=== PATIENT | female | born 1970 | race Caucasian/White ===

== ENCOUNTER 2017-02-24 21:51 | Emergency (ER) | payer BC ==
[2017-02-24 21:57] VITALS: BP 127/74; PULSE 85; TEMP 98.5; BMI 31.8
--- NOTE | 2017-02-24 22:25 | PDOC ---
History of Present Illness - General History Source: Patient Exam Limitations: No Limitations - History of Present Illness Initial Comments: 02/24/17 22:34 The patient is a 46 year old female with significant past medical history of hypertension and hyperlipidemia who presents to the ED for dizziness that began earlier today. Patient describes her dizziness a generalized weakness. She also has complaints of a ringing in both ears, but no ear pain or ear discharge. Patient reports a few episodes of diarrhea today, but no abdominal pain, nausea , or vomiting. States she still has an appetite. Denies sick contacts or recent travels. The patient denies fever, chills, cough, SOB, chest pain, and palpitations. The patient denies dysuria, hematuria, urgency, and frequency. Allergies: NKDA Social History: Current smoker (ppd). No alcohol or drug use reported. Past Surgical History: None reported PCP: Dr. Deo Bradford <Evelyne Marquez - Last Filed: 02/25/17 00:16> - General History Source: Patient, Family <Nas Martinez - Last Filed: 02/25/17 00:45> - General Chief Complaint: Weakness Stated Complaint: WEAKNESS Time Seen by Provider: 02/24/17 22:19 Past History <Evelyne Marquez - Last Filed: 02/25/17 00:16> - Past Medical History HTN: Yes Hypercholesterolemia: Yes - Psycho/Social/Smoking Cessation Hx Suicidal Ideation: No Smoking History: Current every day smoker Number of Cigarettes Smoked Daily: 20 Information on smoking cessation initiated: No <Nas Martinez - Last Filed: 02/25/17 00:45> - Past Medical History Allergies/Adverse Reactions: Allergies Allergy/AdvReac Type Severity Reaction Status Date / Time No Known Allergies Allergy Verified 02/24/17 21:57 Home Medications: Ambulatory Orders Albuterol Sulfate [Proair Respiclick] 90 mcg IH TID 02/24/17 Atorvastatin Ca [Lipitor] 20 mg PO HS 02/24/17 Clonazepam 0.5 mg PO BID 02/24/17 Cyanocobalamin (Vitamin B-12) [Vitamin B-12] 1,000 mcg PO DAILY 02/24/17 Cyclobenzaprine HCl [Flexeril 10 mg] 10 mg PO DAILY 02/24/17 Dexlansoprazole [Dexilant] 60 mg PO DAILY 02/24/17 Lisinopril/Hydrochlorothiazide [Lisinopril-Hctz 10-12.5 mg Tab] 1 each PO DAILY 02/24/17 Meclizine HCl 12.5 mg PO TID 02/24/17 Meloxicam [Mobic] 15 mg PO DAILY 02/24/17 Pantoprazole Sodium 40 mg PO DAILY 02/24/17 Pyridoxine HCl (B-6) [Vitamin B6] 50 mg PO DAILY 02/24/17 Sertraline HCl [Zoloft] 100 mg PO DAILY 02/24/17 Review of Systems - Review of Systems Able to Perform ROS?: Yes Comments:: 02/24/17 22:34 CONSTITUTIONAL: +generalized weakness Absent: fever, no chills, no fatigue EYES: Absent: visual changes ENT: +bilateral ear ringing Absent: ear pain, no sore throat CARDIOVASCULAR: Absent: chest pain, no palpitations RESPIRATORY: Absent: cough, no SOB GI: +diarrhea Absent: abdominal pain, no nausea, no vomiting, no constipation GENITOURINARY: Absent: dysuria, no frequency, no hematuria MUSCULOSKELETAL: Absent: back pain, no arthralgia, no myalgia SKIN: Absent: rash NEURO: +dizziness Absent: headache <Evelyne Marquez - Last Filed: 02/25/17 00:16> *Physical Exam - Vital Signs Last Vital Signs Temp Pulse Resp BP Pulse Ox 98.5 F 85 18 127/74 99 02/24/17 21:54 02/24/17 21:54 02/24/17 21:54 02/24/17 21:54 02/24/17 21:54 - Physical Exam Comments: 02/24/17 22:34 GENERAL: Well-appearing, well-nourished. No apparent distress. HEENT: Normocephalic, atraumatic. PERRL, EOM intact. CARDIOVASCULAR: Normal S1, S2. Regular rate and rhythm. PULMONARY: Clear to auscultation bilaterally. ABDOMEN: Soft, non-distended, non-tender. EXTREMITIES: Normal ROM in all four extremities. No gross deformities. SKIN: Warm, dry. No rash NEUROLOGICAL: No focal neurological deficits. <Evelyne Marquez - Last Filed: 02/25/17 00:16> - Vital Signs Last Vital Signs Temp Pulse Resp BP Pulse Ox 98.5 F 85 18 127/74 99 02/24/17 21:54 02/24/17 21:54 02/24/17 21:54 02/24/17 21:54 02/24/17 21:54 <Nas Martinez - Last Filed: 02/25/17 00:45> ED Treatment Course - LABORATORY CBC & Chemistry Diagram: 02/24/17 22:50 02/24/17 22:50 - RADIOLOGY Radiograph Interpretation: 02/25/17 00:16 EXAM: CT brain without contrast Reviewed by Imaging concrete block mason: FINDINGS: The ventricular system is midline and nondilated. The sulcal pattern is normal for the patient's age. There is no bleed, mass, extra-axial fluid collection or mass effect. No skull fracture or skull lesion is identified. The visualized paranasal sinuses and mastoid air cells are clear. IMPRESSION: Normal exam. <Evelyne Marquez - Last Filed: 02/25/17 00:16> - LABORATORY CBC & Chemistry Diagram: 02/24/17 22:50 02/24/17 22:50 <Nas Martinez - Last Filed: 02/25/17 00:45> Medical Decision Making - Medical Decision Making 02/25/17 00:23 Dr. Martinez: The scribe's documentation has been prepared under my direction and personally reviewed by me in its entirery. I confirm that the note above accurately reflects all work, treatment, procedures, and medical decision making performed by me. Pt feels better after IVF hydration and 25mg of Mecilzine. Pt will be discharged. Advised to take two tabs of her 12.5mg tabs she already has. Pt to follow up with her pcp. <Nas Martinez - Last Filed: 02/25/17 00:45> *DC/Admit/Observation/Transfer - Attestations Scribe Attestion: 02/24/17 22:34 Documentation prepared by Evelyne Marquez, acting as medical center director for Nas Martinez MD/DO. <Evelyne Marquez - Last Filed: 02/25/17 00:16> - Discharge Dispostion Admit: No <Nas Martinez - Last Filed: 02/25/17 00:45> Diagnosis at time of Disposition: Vertigo, Dizziness - Discharge Dispostion Disposition: HOME Condition at time of disposition: Stable - Referrals Referrals: Deo Bradford MD [Primary Care Provider] - Kalia Marcelo MD [Staff Physician] - Matthew Gr MD [Staff Physician] - Royal Turner MD [Staff Physician] - - Patient Instructions Printed Discharge Instructions: DI for Vertigo Additional Instructions: Please take 2 tabs of 12.5mg Meclizine tabs every 8 hours. Follow up with your doctor. Return if any problems
[2017-02-24] MEDS ORDERED: MECLIZINE HCL 25 MG TABLET (FP) PO STA (22:26)
[2017-02-24] MEDS ORDERED: SODIUM CHLORIDE 1,000 ML IV STA (22:26)
[2017-02-24] MEDS ORDERED: MECLIZINE HCL 25 MG TABLET (FP) ONE (22:32)
[2017-02-24 23:08] LABS: BASOPHIL 0.6 % (0-2.0); EOSINOPHIL 2.6 % (0-4.5); MCH 27.9 pg (25.7-33.7); MCHC 33.7 g/dl (32.0-36.0); MEAN CELL VOLUME 82.7 fl (80-96); MEAN PLT VOLUME 9.3 fl (7.5-11.1); NEUTROPHILS 64.1 % (42.8-82.8); PLATELET COUNT 170 K/MM3 (134-434); RDW 13.7 % (11.6-15.6); WHITE BLOOD COUNT 10.9 K/mm3 (4.0-10.0)
[2017-02-24 23:50] LABS: ALBUMIN 3.6 g/dl (3.4-5.0); ANION GAP 11 (8-16); BILIRUBIN,TOTAL 0.2 mg/dL (0.2-1.0); CALCIUM 9.6 mg/dL (8.5-10.1); CO2 29 mmol/L (21-32); GLUCOSE,RANDOM 114 mg/dL (74-106); SGOT/AST 23 U/L (15-37); SGPT/ALT 36 U/L (12-78); TOT PROT 6.8 g/dl (6.4-8.2)
[2017-02-24 23:53] LABS: ALK PHOS 106 U/L (45-117); TROPONIN I < 0.02 ng/ml (0.00-0.05)
== END 2017-02-25 00:40 | disposition home or self-care (01) ==
LOC: JER 21:51
PROC: 3E0337Z Introduction of Electrolytic and Water Balance Substance into Peripheral Vein, Percutaneous Approach (ICD-10-PCS; principal; 2017-02-24)
DX: R42 Dizziness and giddiness (principal); I10 Essential (primary) hypertension; E78.5 Hyperlipidemia, unspecified; F17.210 Nicotine dependence, cigarettes, uncomplicated
CPT/HCPCS: 36415; 70450-TC; 80053; 82550; 82553; 84484; 84703; 85025; 99284-25

== ENCOUNTER 2018-03-18 21:17 | Emergency (ER) | payer OTHER ==
[2018-03-18 21:39] VITALS: BP 127/79; PULSE 77; TEMP 98.2; BMI 33.3
[2018-03-18] MEDS ORDERED: SODIUM CHLORIDE 1,000 ML IV STA (23:48)
--- NOTE | 2018-03-18 23:48 | PDOC ---
History of Present Illness - General Chief Complaint: Pain Stated Complaint: FATIGUE Time Seen by Provider: 03/18/18 23:05 History Source: Patient Exam Limitations: No Limitations - History of Present Illness Initial Comments: 03/19/18 00:34 Best Contact: PCP: Constanza name Pmhx: Hypertension, hyperlipidemia, NIDDM Pshx:0 Allergies:0 FH:0 Social Hx: Cigarettes/ 0 Alcohol/ 0 Drugs/0 LMP:03/17/2018 47-year-old female presents to the emergency department complaining of bilateral ear fullness with dizziness/room spinning but denies lightheadedness, headache, visual disturbance/pain, facial pain, sore throat, neck stiffness/pain , back pain, chest pain, shortness of breath, abdominal pains, flank pains, urinary symptoms, extremity numbness or tingling sensation. Patient states her dizziness is pretty chronic and is under the care of her PMD. Patient does admit chronic blowing her nose and has notice ear stuffiness shortly after. Past History - Past Medical History Allergies/Adverse Reactions: Allergies Allergy/AdvReac Type Severity Reaction Status Date / Time No Known Allergies Allergy Verified 02/24/17 21:57 Home Medications: Ambulatory Orders Albuterol Sulfate [Proair Respiclick] 90 mcg IH TID 02/24/17 Atorvastatin Ca [Lipitor] 20 mg PO HS 02/24/17 Clonazepam 0.5 mg PO BID 02/24/17 Cyanocobalamin (Vitamin B-12) [Vitamin B-12] 1,000 mcg PO DAILY 02/24/17 Cyclobenzaprine HCl [Flexeril 10 mg] 10 mg PO DAILY 02/24/17 Dexlansoprazole [Dexilant] 60 mg PO DAILY 02/24/17 Lisinopril/Hydrochlorothiazide [Lisinopril-Hctz 10-12.5 mg Tab] 1 each PO DAILY 02/24/17 Meclizine HCl 12.5 mg PO TID 02/24/17 Meloxicam [Mobic] 15 mg PO DAILY 02/24/17 Pantoprazole Sodium 40 mg PO DAILY 02/24/17 Pyridoxine HCl (B-6) [Vitamin B6] 50 mg PO DAILY 02/24/17 Sertraline HCl [Zoloft] 100 mg PO DAILY 02/24/17 COPD: No DVT: No Diabetes: Yes (NIDDM) HTN: Yes Hypercholesterolemia: Yes - Suicide/Smoking/Psychosocial Hx Smoking History: Current every day smoker Number of Cigarettes Smoked Daily: 20 Information on smoking cessation initiated: Yes Hx Alcohol Use: No Drug/Substance Use Hx: No Substance Use Type: None Review of Systems - Review of Systems Able to Perform ROS?: Yes Comments:: 03/19/18 00:38 CONSTITUTIONAL: Absent: fever, chills, diaphoresis, generalized weakness, malaise, loss of appetite HEENT: +B/L ear fullness Absent: rhinorrhea, nasal congestion, throat pain, throat swelling, difficulty swallowing, mouth swelling, ear pain, eye pain, visual Changes CARDIOVASCULAR: Absent: chest pain, loss of consciousness, palpitations, irregular heart rate, peripheral edema RESPIRATORY: Absent: cough, shortness of breath, dyspnea with exertion, orthopnea, wheezing, stridor, hemoptysis GASTROINTESTINAL: Absent: abdominal pain, abdominal distension, nausea, vomiting, diarrhea, constipation, melena, hematochezia GENITOURINARY: Absent: dysuria, frequency, urgency, hesitancy, hematuria, flank pain, genital pain MUSCULOSKELETAL: Absent: myalgia, arthralgia, joint swelling SKIN: Absent: rash, itching, pallor HEMATOLOGIC/IMMUNOLOGIC: Absent: easy bleeding, easy bruising, lymphadenopathy, frequent infections ENDOCRINE: Absent: unexplained weight gain, unexplained weight loss, heat intolerance, cold intolerance NEUROLOGIC: +dizziness Absent: headache, focal weakness or paresthesias, unsteady gait, seizure, mental status changes, bladder or bowel incontinence PSYCHIATRIC: Absent: anxiety, depression, suicidal or homicidal ideation, hallucinations. Is the patient limited Czech proficient: No *Physical Exam - Vital Signs Last Vital Signs Temp Pulse Resp BP Pulse Ox 98.2 F 77 20 127/79 96 03/18/18 21:35 03/18/18 21:35 03/18/18 21:35 03/18/18 21:35 03/18/18 21:35 - Physical Exam Comments: 03/19/18 00:39 GENERAL: Well developed, well nourished. Awake and alert. No acute distress. HEENT: Normocephalic, atraumatic. PERRLA, EOMI. No conjunctival pallor. Sclera are non- icteric. Moist mucous membranes. Oropharynx is clear. NECK: Supple. Full ROM. No JVD. Carotid pulses 2+ and symmetric, without bruits. No thyromegaly. No lymphadenopathy. CARDIOVASCULAR: Regular rate and rhythm. No murmurs, rubs, or gallops. Distal pulses are 2+ and symmetric. PULMONARY: No evidence of respiratory distress. Lungs clear to auscultation bilaterally. No wheezing, rales or rhonchi. ABDOMINAL: Soft. Non-tender. Non-distended. No rebound or guarding. No organomegaly. Normoactive bowel sounds. MUSCULOSKELETAL Normal range of motion at all joints. No bony deformities or tenderness. No CVA tenderness. EXTREMITIES: No cyanosis. No clubbing. No edema. No calf tenderness. SKIN: Warm and dry. Normal capillary refill. No rashes. No jaundice. NEUROLOGICAL: Alert, awake, appropriate. Cranial nerves 2-12 intact. No deficits to light touch and temperature in face, upper extremities and lower extremities. No motor deficits in the in face, upper extremities and lower extremities. Normoreflexic in the upper and lower extremities. Normal speech. Toes are down- going bilaterally. Gait is normal without ataxia. PSYCHIATRIC: Cooperative. Good eye contact. Appropriate mood and affect. ED Treatment Course - LABORATORY CBC & Chemistry Diagram: 03/19/18 00:00 03/19/18 00:00 - RADIOLOGY Radiograph Interpretation: 03/19/18 00:39 CT head w/o conrast: neg ?acute vs chronic sinusitis *DC/Admit/Observation/Transfer Diagnosis at time of Disposition: Dizziness - Discharge Dispostion Disposition: HOME Condition at time of disposition: Stable Decision to Admit order: No - Referrals Referrals: Deo Bradford MD [Primary Care Provider] - Clark Chacon MD [Staff Physician] - - Patient Instructions Printed Discharge Instructions: DI for Dizziness-Nonvertigo Additional Instructions: Follow-up with your neurologist Return back to the emergency department for severe/persistent or worsening symptoms - Post Discharge Activity
[2018-03-19 00:50] LABS: BASO % 0.8 % (0-2.0); EOS % 2.7 % (0-4.5); HEMOGLOBIN 13.3 GM/dL (10.7-15.3); LYMPH % 25.7 % (8-40); MCH 28.3 pg (25.7-33.7); MCHC 34.1 g/dl (32.0-36.0); MEAN PLT VOLUME 9.5 fl (7.5-11.1); MONO % 7.3 % (3.8-10.2); NEUT % 63.5 % (42.8-82.8); PLATELET COUNT 183 K/MM3 (134-434); RDW 14.2 % (11.6-15.6); WHITE BLOOD COUNT 11.1 K/mm3 (4.0-10.0)
[2018-03-19 01:07] LABS: ALBUMIN 3.7 g/dl (3.4-5.0); ALK PHOS 120 U/L (45-117); ANION GAP 7 (8-16); BILIRUBIN,TOTAL 0.3 mg/dL (0.2-1.0); BLOOD UREA NITROGEN 13 mg/dL (7-18); CALCIUM 8.9 mg/dL (8.5-10.1); CHLORIDE 108 mmol/L (98-107); CO2 29 mmol/L (21-32); CREATININE 0.8 mg/dL (0.55-1.02); GLUCOSE,RANDOM 162 mg/dL (74-106); POTASSIUM 3.6 mmol/L (3.5-5.1); SGOT/AST 32 U/L (15-37); SGPT/ALT 62 U/L (12-78); SODIUM 144 mmol/L (136-145); TOT PROT 6.7 g/dl (6.4-8.2)
== END 2018-03-19 01:32 | disposition home or self-care (01) ==
LOC: JER 21:17 → JERFT 21:17 → JER 03-19 01:32
PROC: 3E0337Z Introduction of Electrolytic and Water Balance Substance into Peripheral Vein, Percutaneous Approach (ICD-10-PCS; principal; 2018-03-18)
DX: R42 Dizziness and giddiness (principal); I10 Essential (primary) hypertension; E78.00 Pure hypercholesterolemia, unspecified; E11.9 Type 2 diabetes mellitus without complications; Z79.84 Long term (current) use of oral hypoglycemic drugs
CPT/HCPCS: 36415; 70450-TC; 80053; 85025; 96360; 99282-25; J7030

== ENCOUNTER 2018-12-15 19:56 | Emergency (ER) | payer OTHER ==
[2018-12-15 20:00] VITALS: BP 132/84; PULSE 96; TEMP 98; BMI 30.6
--- NOTE | 2018-12-15 20:21 | PDOC ---
History of Present Illness - General History Source: Patient Exam Limitations: No Limitations - History of Present Illness Initial Comments: 48 yo F w a pmh of HTN, HLD, and Pre-diabetes walked into to the ER with the chief complaint of RLQ abdominal pain. The patient states she was told by her PCP - Dr. Bradford that she had blood in her urine yesterday. She endorses Rlq abdominal pain which radiates to the groin. She states the pain starts in her flank and is 8/10 in severity. She denies fevers, chills, infections, dysuria, frequency, urgency, chest pain, SOB or difficulty breathing. Allergies: NKDA, NKA Social History: Current smoker (ppd) ~ 30 years. No alcohol or drug use reported. Past Surgical History: None reported PCP: Dr. Deo Bradford <Leandro Reyes - Last Filed: 12/15/18 23:53> <Laure Shelley - Last Filed: 12/16/18 00:20> - General Chief Complaint: Pain Stated Complaint: RLQ PAIN Time Seen by Provider: 12/15/18 20:19 Past History - Past Medical History COPD: No DVT: No Diabetes: Yes (NIDDM) HTN: Yes Hypercholesterolemia: Yes - Reproductive History Is Patient Now?: No Therapeutic (s) & number: No - Suicide/Smoking/Psychosocial Hx Smoking History: Never smoked Number of Cigarettes Smoked Daily: 20 Hx Alcohol Use: No Drug/Substance Use Hx: No Substance Use Type: None <Leandro Reyes - Last Filed: 12/15/18 23:53> <Laure Shelley - Last Filed: 12/16/18 00:20> - Past Medical History Allergies/Adverse Reactions: Allergies Allergy/AdvReac Type Severity Reaction Status Date / Time No Known Allergies Allergy Verified 12/15/18 20:00 Home Medications: Ambulatory Orders Albuterol Sulfate [Proair Respiclick] 90 mcg IH TID 02/24/17 Atorvastatin Ca [Lipitor] 20 mg PO HS 02/24/17 Clonazepam 0.5 mg PO BID 02/24/17 Cyanocobalamin (Vitamin B-12) [Vitamin B-12] 1,000 mcg PO DAILY 02/24/17 Cyclobenzaprine HCl [Flexeril 10 mg] 10 mg PO DAILY 02/24/17 Dexlansoprazole [Dexilant] 60 mg PO DAILY 02/24/17 Lisinopril/Hydrochlorothiazide [Lisinopril-Hctz 10-12.5 mg Tab] 1 each PO DAILY 02/24/17 Meclizine HCl 12.5 mg PO TID 02/24/17 Meloxicam [Mobic] 15 mg PO DAILY 02/24/17 Pantoprazole Sodium 40 mg PO DAILY 02/24/17 Pyridoxine HCl (B-6) [Vitamin B6] 50 mg PO DAILY 02/24/17 Sertraline HCl [Zoloft] 100 mg PO DAILY 02/24/17 Review of Systems - Review of Systems Able to Perform ROS?: Yes Comments:: CONSTITUTIONAL: Absent: fever, no chills, no fatigue EYES: Absent: visual changes ENT: Absent: ear pain, no sore throat CARDIOVASCULAR: Absent: chest pain, no palpitations RESPIRATORY: Absent: cough, no SOB GI: Present: Abdominal pain Absent: no nausea, no vomiting, no constipation, no diarrhea GENITOURINARY: Present: hematuria Absent: dysuria, no frequency MUSKULOSKELETAL: Present: back pain Absent: no arthralgia, no myalgia SKIN: Absent: rash NEURO: Absent: headache <Leandro Reyes - Last Filed: 12/15/18 23:53> *Physical Exam - Vital Signs Last Vital Signs Temp Pulse Resp BP Pulse Ox 98.0 F 96 H 18 132/84 98 12/15/18 19:57 12/15/18 19:57 12/15/18 19:57 12/15/18 19:57 12/15/18 19:57 - Physical Exam Comments: GENERAL: Well-appearing, well-nourished. No apparent distress. HEENT: Normocephalic, atraumatic. PERRL, EOM intact. CARDIOVASCULAR: Normal S1, S2. Regular rate and rhythm. PULMONARY: No evidence of respiratory distress. Lungs clear to auscultation bilaterally. No wheezing, rales or rhonchi. ABDOMEN: Mild RLQ ttp. + right sided CVA. Abdomen is still soft, non-distended, and has normal bowel sounds. EXTREMITIES: Normal ROM in all four extremities. No gross deformities. SKIN: Warm, dry. No rash NEUROLOGICAL: No focal neurological deficits. Female Pelvic Exam: positive: normal external exam, cervical os closed, adnexal tenderness (Left adnexal tenderness). negative: CMT, lesions, vaginal bleeding <Leandro Reyes - Last Filed: 12/15/18 23:53> - Vital Signs Last Vital Signs Temp Pulse Resp BP Pulse Ox 98.0 F 96 H 18 132/84 98 12/15/18 19:57 12/15/18 19:57 12/15/18 19:57 12/15/18 19:57 12/15/18 19:57 <Laure Shelley - Last Filed: 12/16/18 00:20> ED Treatment Course - LABORATORY CBC & Chemistry Diagram: 12/15/18 20:53 12/15/18 20:53 - RADIOLOGY Radiograph Interpretation: Spiral CT: No urinary tract calculus or hydroureteronephrosis is identified. Hepatic steatosis is noted which is probably somewhat improved since a previous CT study of 2017. The remainder of the exam demonstrates no obvious interval change. The kidneys, urinary bladder, pancreas and gallbladder demonstrate no discrete noncontrast abnormality. Incidental right renal cortical cyst. There is no aortic aneurysm. No obvious lymphadenopathy is noted. There is no CT evidence of acute appendicitis or diverticulitis. No gross noncontrast small bowel pathology is seen. Borderline splenic size as on prior studies. Stable bilateral adrenal adenomas. There is no obvious pelvic pathology on noncontrast imaging. The visualized osseous structures demonstrate no gross acute abnormality. Moderate L5-S1 degenerative disc changes. Impression: No evidence of urolithiasis or obstructive uropathy. Diffuse hepatic steatosis is noted which is probably somewhat improved since a CT study of 2017. Stable bilateral adrenal adenomas. Biochemical evaluation is suggested if not previously performed. <Leandro Reyes - Last Filed: 12/15/18 23:53> - LABORATORY CBC & Chemistry Diagram: 12/15/18 20:53 12/15/18 20:53 - ADDITIONAL ORDERS Additional order review: Laboratory Results 12/15/18 12/15/18 12/15/18 20:53 20:53 20:53 Sodium 145 Potassium 4.3 Chloride 109 H Carbon Dioxide 28 Anion Gap 8 BUN 16 Creatinine 1.0 Creat Clearance w eGFR 59.43 Random Glucose 110 H Calcium 9.9 Total Bilirubin 0.2 AST 22 ALT 44 Alkaline Phosphatase 114 Total Protein 7.0 Albumin 3.8 Lipase 117 Urine Color Yellow Urine Appearance Clear Urine pH 5.0 Ur Specific [place] 1.014 Urine Protein Negative Urine Glucose (UA) Negative Urine Ketones Negative Urine Blood 2+ H Urine Nitrite Negative Urine Bilirubin Negative Urine Urobilinogen 0.2 Ur Leukocyte Esterase Trace Urine WBC (Auto) 6 Urine RBC (Auto) 2 Urine Casts (Auto) 3 U Epithel Cells (Auto) 5.1 Urine Bacteria (Auto) 79.2 Urine HCG, Qual Negative 12/15/18 20:53 RBC 4.87 MCV 84.3 MCHC 34.2 RDW 14.4 MPV 9.4 Neutrophils % 61.1 Lymphocytes % 28.8 Monocytes % 7.3 Eosinophils % 2.0 Basophils % 0.8 - Medications Given in the ED: ED Medications Discontinued Medications Generic Name Dose Route Start Last Admin Trade Name Freq PRN Reason Stop Dose Admin Acetaminophen 1,000 mg 12/15/18 20:33 12/15/18 20:47 Ofirmev Injection - IVPB 12/15/18 20:34 1,000 mg ONCE ONE Administration Sodium Chloride 1,000 mls @ 1,000 mls/hr 12/15/18 20:33 12/15/18 20:47 Normal Saline - IV 12/15/18 21:32 1,000 mls/hr ASDIR STA Administration Ketorolac Tromethamine 60 mg 12/15/18 22:52 12/15/18 23:07 Toradol Injection - IM 12/15/18 22:53 60 mg ONCE ONE Administration <Laure Shelley - Last Filed: 12/16/18 00:20> Medical Decision Making - Medical Decision Making 48 yo F w a pmh of HTN, HLD, and Pre-diabetes walked into to the ER with the chief complaint of RLQ abdominal pain. The patient states she was told by her PCP - Dr. Bradford that she had blood in her urine yesterday. She endorses Rlq abdominal pain which radiates to the groin. She states the pain starts in her flank and is 8/10 in severity. She denies fevers, chills, infections, dysuria, frequency, urgency, chest pain, SOB or difficulty breathing. VS: WNL DDx IBNLT: Renal colic, UTI/Pylo, appendicitis, ovarian cyst/torsion, - IUP vs ectopic. Plan: Labs, Urine, Spiral CT, IV hydration, analgesia, re-assess. Labs unremarkable HCG negative Urine shows 2+ blood Spiral CT: Shows no stones Pelvic exam showed left adnexal tenderness. - Will obtain TVUS to evaluate the ovaries. - If TVUS is negative will presume this patient likely passed a stone as the source of her pain. Signing patient out to Dr. Shelley pending TVUS read from imaging information security director - if read is negative patient can be DCed. <Leandro Reyes - Last Filed: 12/15/18 23:53> *DC/Admit/Observation/Transfer - Discharge Dispostion Decision to Admit order: No <Leandro Reyes - Last Filed: 12/15/18 23:53> <Laure Shelley - Last Filed: 12/16/18 00:20> Diagnosis at time of Disposition: Abdominal pain - Discharge Dispostion Disposition: HOME Condition at time of disposition: Stable - Referrals Referrals: Deo Bradford MD [Primary Care Provider] - Matt Gonzalez MD [Staff Physician] - - Patient Instructions Printed Discharge Instructions: Kidney Stones -- Adult, DI for Abdominal Pain- Adult Additional Instructions: You came into the ER with right flank pain. We looked at your urine and saw there was blood in it. We did a cat scan which showed you have no current stones. It is likely that you passed a stone and that is where all the pain came from. Please make sure to schedule a follow up appointment with your primary care doctor in the next 3 to 5 days to make sure you are getting better and being taken care of. We are giving you the number of a urologist to call and schedule an appointment with - Dr. Gonzalez. Please make sure to schedule an appointment in the next 3 to 5 days. Your ultrasound showed a mass that is 9x7x6 cm that is possibly a fibroid. Follow up with your OBGYN on this finding. Come back to the ER immediately if your pain worsens, you get a fever, start vomiting, or have any other new or worsening concerns. Thank you for coming to the [facility] ER. We hope you feel better soon! Print Language: [email or web address]
[2018-12-15] MEDS ORDERED: ACETAMINOPHEN 1000 MG/100 ML VIAL (NON FORMULARY) IVPB ONE (20:33)
[2018-12-15] MEDS ORDERED: SODIUM CHLORIDE 1,000 ML IV STA (20:33)
[2018-12-15] MEDS ORDERED: ACETAMINOPHEN INJECTION 100 ML IVPB ONE (20:43)
[2018-12-15 21:13] LABS: BASO % 0.8 % (0-2.0); LYMPH % 28.8 % (8-40); MCH 28.8 pg (25.7-33.7); MCHC 34.2 g/dl (32.0-36.0); MEAN CELL VOLUME 84.3 fl (80-96); MEAN PLT VOLUME 9.4 fl (7.5-11.1); MONO % 7.3 % (3.8-10.2); NEUT % 61.1 % (42.8-82.8); PLATELET COUNT 175 K/MM3 (134-434); RBC 4.87 M/mm3 (3.60-5.2); RDW 14.4 % (11.6-15.6); WHITE BLOOD COUNT 11.8 K/mm3 (4.0-10.0)
[2018-12-15 21:30] LABS: EPI CELLS 5.1 /HPF (0-5/HPF); URINE APPEARANCE CLEAR; URINE BACTERIA 79.2 /hpf (NEGATIVE); URINE BILIRUBIN NEGATIVE (NEGATIVE); URINE CASTS 3 /lpf (0-8); URINE COLOR YELLOW; URINE GLUCOSE (UA) NEGATIVE (NEGATIVE); URINE KETONE NEGATIVE (NEGATIVE); URINE LEUK ESTERASE TRACE (NEGATIVE); URINE NITRITE NEGATIVE (NEGATIVE); URINE PROTEIN NEGATIVE (NEGATIVE); URINE RBC 2 /hpf (0-4); URINE UROBILINOGEN 0.2 mg/dL (0.2-1.0); URINE WBC 6 /hpf (0-5)
[2018-12-15 21:46] LABS: ALBUMIN 3.8 g/dl (3.4-5.0); ALK PHOS 114 U/L (45-117); ANION GAP 8 MMOL/L (8-16); BILIRUBIN,TOTAL 0.2 mg/dL (0.2-1); BLOOD UREA NITROGEN 16 mg/dL (7-18); CALCIUM 9.9 mg/dL (8.5-10.1); CHLORIDE 109 mmol/L (98-107); CO2 28 mmol/L (21-32); GLUCOSE,RANDOM 110 mg/dL (74-106); LIPASE 117 U/L (73-393); POTASSIUM 4.3 mmol/L (3.5-5.1); SGOT/AST 22 U/L (15-37); SGPT/ALT 44 U/L (13-61); SODIUM 145 mmol/L (136-145)
--- NOTE | 2018-12-15 21:58 | PDOC ---
Documentation entered by Shahida Beach SCRIBE, acting as scribe for Kavon Gregg MD. Kavon Gregg MD: This documentation has been prepared by the Yong ayala Adrianna, SCRIBE, under my direction and personally reviewed by me in its entirety. I confirm that the documentation accurately reflects all work, treatment, procedures, and medical decision making performed by me. Attending Attestation - Resident Resident Name: Leandro Reyes - ED Attending Attestation I have performed the following: I have examined & evaluated the patient, The case was reviewed & discussed with the resident, I agree w/resident's findings & plan, Exceptions are as noted - HPI HPI: The patient is a 48 year old female, with a significant PMH of pre-diabetes, HTN , HLD, who presents to the emergency department today complaining of abdominal pain. Patient notes the pain is most prominent on the right lower quadrant, and radiates into her groin. She also endorses flank pain, which is an 8/10 in nature. Patient reports seeing Dr. Bradford yesterday, where she was told there was blood in her urine. The patient denies chest pain, shortness of breath, headache and dizziness. Denies fever, chills, nausea, vomit, diarrhea and constipation. Denies dysuria, frequency, urgency and hematuria Denies vaginal bleeding, discharge Allergies: NKA Past surgical history: None reported Social history: Current smoker (20 cigarettes per day). Denies EtOH or illicit drug use. PCP: Dr. Deo Bradford 12/15/18 22:23 Pain was localized to RLQ/groin with some R sided flank px radiating to groin, Pt states that pain spiked to most severe point when she went to see Dr. Bradford and it has been slowly improving. No other complaints - Physicial Exam PE: 12/16/18 00:54 Detailed exam documented by resident No CVAT Abd soft, nt, nd, no guarding, no rebound - Medical Decision Making EXAM#: TYPE/EXAM: RESULT: [id number] CT/SPIRAL- RENAL-STONE CT Renal stone CT without contrast Clinical information given: evaluate for stone Impression: No evidence of urolithiasis or obstructive uropathy. Diffuse hepatic steatosis is noted which is probably somewhat improved since a CT study of 2017. Stable bilateral adrenal adenomas. Biochemical evaluation is suggested if not previously performed. Reported By: Artemio Hartman MD 12/15/18 23:01 12/15/18 23:13 Hx consistent with kidney stone, but spiral ct negative for stone Pelvic exam performed with L sided adnexal px TVUS IMPRESSION: Heterogeneous echogenicity in the uterine myometrium most likely due to a fibroid and other uterine masses cannot be excluded. Limited exam with nonvisualization of the ovaries. If there is a clinical concern for ovarian cysts then follow-up outpatient evaluation may be needed. Will dc patient with close follow up
[2018-12-15] MEDS ORDERED: KETOROLAC TROMETHAMINE 60 MG/2 ML VIAL IM ONE (22:52)
[2018-12-15] MEDS ORDERED: KETOROLAC TROMETHAMINE 60 MG/2 ML VIAL ONE (23:05)
== END 2018-12-16 00:22 | disposition home or self-care (01) ==
LOC: JER 19:56
PROC: 3E0233Z Introduction of Anti-inflammatory into Muscle, Percutaneous Approach (ICD-10-PCS; principal; 2018-12-15)
PROC: 3E033NZ Introduction of Analgesics, Hypnotics, Sedatives into Peripheral Vein, Percutaneous Approach (ICD-10-PCS; 2018-12-15)
DX: N20.0 Calculus of kidney (principal); R10.31 Right lower quadrant pain; I10 Essential (primary) hypertension; E78.00 Pure hypercholesterolemia, unspecified; E11.9 Type 2 diabetes mellitus without complications; Z79.84 Long term (current) use of oral hypoglycemic drugs
CPT/HCPCS: 36415; 74176-TC; 76830-TC; 80053; 81003; 83690; 84703; 85025; 87086; 99282-25; J0131; J7030

== ENCOUNTER 2019-10-07 20:19 | Emergency (ER) | payer OTHER ==
[2019-10-07 20:29] VITALS: TEMP 98; BMI 31.8
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
[2019-10-08] MEDS ORDERED: ONDANSETRON *ODT* 4 MG TABLET SL ONE (01:33)
[2019-10-08] MEDS ORDERED: ONDANSETRON *ODT* 4 MG TABLET ONE (02:09)
[2019-10-08 02:47] VITALS: BP 118/75; PULSE 86
== END 2019-10-08 02:44 | disposition home or self-care (01) ==
LOC: JER 20:19
DX: M25.552 Pain in left hip (principal); M54.2 Cervicalgia; R42 Dizziness and giddiness; V03.10XA Pedestrian on foot injured in collision with car, pick-up truck or van in traffic accident, initial encounter; Y92.414 Local residential or business street as the place of occurrence of the external cause; Y93.89 Activity, other specified; Y99.8 Other external cause status; I10 Essential (primary) hypertension; E78.5 Hyperlipidemia, unspecified; E11.9 Type 2 diabetes mellitus without complications; Z79.84 Long term (current) use of oral hypoglycemic drugs
CPT/HCPCS: 70450-TC; 71046-TC-FY; 72125-TC; 73523-TC-FY; 73552-TC-LT-FY; 99282-25; Q0162

== ENCOUNTER 2020-12-03 19:09 | Emergency (ER) | payer OTHER ==
[2020-12-03 19:18] VITALS: BMI 29.8
[2020-12-03] MEDS ORDERED: MECLIZINE HCL 25 MG TABLET (FP) PO ONE (20:40)
[2020-12-03] MEDS ORDERED: MECLIZINE HCL 25 MG TABLET (FP) ONE (20:46)
[2020-12-03 21:11] LABS: BASO % 1.4 % (0-2.0); EOS % 1.9 % (0-4.5); HEMATOCRIT 40.3 % (32.4-45.2); HEMOGLOBIN 13.6 GM/dL (10.7-15.3); LYMPH % 27.6 % (8-40); MCH 28.1 pg (25.7-33.7); MCHC 33.7 g/dl (32.0-36.0); MEAN CELL VOLUME 83.3 fl (80-96); MEAN PLT VOLUME 9.3 fl (7.5-11.1); MONO % 7.2 % (3.8-10.2); NEUT % 61.9 % (42.8-82.8); PLATELET COUNT 182 K/MM3 (134-434); RBC 4.84 M/mm3 (3.60-5.2); RDW 14.3 % (11.6-15.6)
[2020-12-03 21:17] LABS: EPI CELLS 8 /uL (0-25.1); HCG,QUALITATIVE URINE Negative; HYALINE CASTS 0 /uL (0-3.1); URINE APPEARANCE CLEAR; URINE BACTERIA 128 /uL (0-1359); URINE BILIRUBIN NEGATIVE (NEGATIVE); URINE COLOR YELLOW; URINE GLUCOSE (UA) NEGATIVE (NEGATIVE); URINE KETONE NEGATIVE (NEGATIVE); URINE LEUK ESTERASE NEGATIVE (NEGATIVE); URINE NITRITE NEGATIVE (NEGATIVE); URINE PROTEIN NEGATIVE (NEGATIVE); URINE RBC 4 /uL (0-23.9); URINE UROBILINOGEN 0.2 mg/dL (0.2-1.0); URINE WBC 4 /uL (0-25.8)
[2020-12-03 21:28] LABS: POTASSIUM 3.5 mmol/L (3.5-5.1)
[2020-12-03 21:30] LABS: ALBUMIN 3.7 g/dl (3.4-5.0); CALCIUM 9.3 mg/dL (8.5-10.1)
[2020-12-03 21:33] LABS: CREATININE 0.8 mg/dL (0.55-1.3)
[2020-12-03 21:35] LABS: BILIRUBIN,TOTAL 0.3 mg/dL (0.2-1)
[2020-12-03 23:08] VITALS: BP 115/78; PULSE 79; TEMP 98
== END 2020-12-03 23:34 | disposition home or self-care (01) ==
LOC: JER 19:09
DX: R42 Dizziness and giddiness (principal)
CPT/HCPCS: 36415; 70450-TC; 80053; 81003; 84703; 85025; 93005; 93010; 99285-25

== ENCOUNTER 2021-06-30 20:59 | Emergency (ER) | payer OTHER ==
[2021-06-30 21:30] VITALS: BP 118/82; PULSE 91; TEMP 98.3; BMI 30.7
[2021-06-30] MEDS ORDERED: IBUPROFEN 600 MG TABLET (FP) PO ONE ×2 (22:50→23:08)
== END 2021-06-30 23:14 | disposition home or self-care (01) ==
LOC: JERFT 20:59 → JER 20:59 → JERFT 23:14
DX: M67.921 Unspecified disorder of synovium and tendon, right upper arm (principal)
CPT/HCPCS: 73070-TC-RT-FY; 99283-25

== ENCOUNTER 2021-12-31 19:46 | Emergency (ER) | payer OTHER ==
[2021-12-31 19:57] VITALS: BP 138/91; PULSE 89; TEMP 97.6; BMI 29.1
[2021-12-31] MEDS ORDERED: DEXAMETHASONE SOD PHOSPHATE 10 MG/1 ML VIAL IM ONE (21:43)
[2021-12-31] MEDS ORDERED: KETOROLAC TROMETHAMINE 15 MG/ML VIAL IM ONE (21:43)
[2021-12-31] MEDS ORDERED: ACETAMINOPHEN 500 MG TABLET (FP) PO ONE (21:43)
[2021-12-31] MEDS ORDERED: LIDOCAINE 5% TOPICAL PATCH TP ONE (21:44)
[2021-12-31] MEDS ORDERED: LIDOCAINE PATCH REMOVAL MC ONE (22:00)
[2021-12-31] MEDS ORDERED: ACETAMINOPHEN 325 MG TABLET (FP) ONE (23:02)
[2021-12-31] MEDS ORDERED: KETOROLAC TROMETHAMINE 15 MG/ML VIAL ONE (23:02)
[2021-12-31] MEDS ORDERED: LIDOCAINE 5% TOPICAL PATCH ONE (23:02)
[2021-12-31 23:31] LABS: HCG,QUALITATIVE URINE Negative
[2021-12-31 23:33] LABS: EPI CELLS >36 /uL (0-25.1); HYALINE CASTS 0 /uL (0-3.1); URINE APPEARANCE CLOUDY; URINE BACTERIA 901 /uL (0-1359); URINE BILIRUBIN NEGATIVE (NEGATIVE); URINE COLOR YELLOW; URINE GLUCOSE (UA) NEGATIVE (NEGATIVE); URINE KETONE NEGATIVE (NEGATIVE); URINE LEUK ESTERASE TRACE (NEGATIVE); URINE NITRITE NEGATIVE (NEGATIVE); URINE PROTEIN TRACE (NEGATIVE); URINE RBC 39 /uL (0-23.9); URINE UROBILINOGEN 0.2 mg/dL (0.2-1.0); URINE WBC 44 /uL (0-25.8)
== END 2022-01-01 00:55 | disposition home or self-care (01) ==
LOC: JER 19:46
PROC: 3E0233Z Introduction of Anti-inflammatory into Muscle, Percutaneous Approach (ICD-10-PCS; principal; 2021-12-31)
PROC: 3E023GC Introduction of Other Therapeutic Substance into Muscle, Percutaneous Approach (ICD-10-PCS; 2021-12-31)
DX: M54.50 Low back pain, unspecified (principal)
CPT/HCPCS: 72131-TC; 74176-TC; 81003; 84703; 99285-25

== ENCOUNTER 2022-11-05 04:24 | Day surgery (SDC) | payer OTHER ==
[2022-11-02 13:25] VITALS: BMI 28.5
[2022-11-05 12:08] VITALS: TEMP 97.3
[2022-11-05 12:36] VITALS: RESP 14
[2022-11-05 12:50] VITALS: BP 109/69; PULSE 70
== END 2022-11-05 13:01 | disposition home or self-care (01) ==
LOC: JASU-ENDO 04:24
PROVIDERS: ATTEND Internal Medicine Gastroenterology
PROC: 0D5L8ZZ Destruction of Transverse Colon, Via Natural or Artificial Opening Endoscopic (ICD-10-PCS; 2022-11-05)
PROC: 0D5N8ZZ Destruction of Sigmoid Colon, Via Natural or Artificial Opening Endoscopic (ICD-10-PCS; principal; 2022-11-05 11:15)
DX: Z12.11 Encounter for screening for malignant neoplasm of colon (principal); D12.3 Benign neoplasm of transverse colon; D12.5 Benign neoplasm of sigmoid colon; K64.8 Other hemorrhoids
CPT/HCPCS: 82962; 88305-TC

== ENCOUNTER 2023-01-17 18:45 | Emergency (ER) | payer OTHER ==
[2023-01-17 18:51] VITALS: BP 144/79; PULSE 105; RESP 20; TEMP 98.1; BMI 28.2
[2023-01-17] MEDS ORDERED: KETOROLAC TROMETHAMINE 15 MG/ML VIAL IM ONE (20:01)
[2023-01-17] MEDS ORDERED: ACETAMINOPHEN 500 MG TABLET (FP) PO ONE (20:01)
[2023-01-17] MEDS ORDERED: KETOROLAC TROMETHAMINE 15 MG/ML VIAL ONE (20:08)
[2023-01-17] MEDS ORDERED: ACETAMINOPHEN 325 MG TABLET (FP) ONE (20:08)
[2023-01-17 20:35] LABS: BASO % 0.7 % (0-2.0); EOS % 1.3 % (0-4.5); HEMATOCRIT 38.8 % (32.4-45.2); LYMPH % 17.6 % (8-40); MCH 26.8 pg (25.7-33.7); MCHC 33.5 g/dl (32.0-36.0); MEAN CELL VOLUME 80.1 fl (80-96); MEAN PLT VOLUME 8.5 fl (7.5-11.1); MONO % 6.7 % (3.8-10.2); NEUT % 73.7 % (42.8-82.8); PLATELET COUNT 229 10^3/uL (134-434); RBC 4.85 M/mm3 (3.60-5.2); RDW 15.3 % (11.6-15.6); WHITE BLOOD COUNT 15.5 K/mm3 (4.0-10.0)
[2023-01-17 20:39] LABS: HCG,QUALITATIVE URINE Negative
[2023-01-17 20:40] LABS: EPI CELLS 13 /uL (0-25.1); HYALINE CASTS 0 /uL (0-3.1); URINE APPEARANCE CLOUDY; URINE BACTERIA >9,000 /uL (0-1359); URINE BILIRUBIN NEGATIVE (NEGATIVE); URINE COLOR RED; URINE GLUCOSE (UA) 3+ (NEGATIVE); URINE KETONE NEGATIVE (NEGATIVE); URINE LEUK ESTERASE 1+ (NEGATIVE); URINE NITRITE NEGATIVE (NEGATIVE); URINE PROTEIN 2+ (NEGATIVE); URINE RBC 12498 /uL (0-23.9); URINE UROBILINOGEN 0.2 mg/dL (0.2-1.0); URINE WBC 315 /uL (0-25.8)
[2023-01-17] MEDS ORDERED: CEPHALEXIN MONOHYDRATE 500 MG CAPSULE (UD) PO ONE (20:55)
[2023-01-17] MEDS ORDERED: PHENAZOPYRIDINE HCL 100 MG TABLET (FP) PO ONE (21:01)
[2023-01-17 21:31] LABS: POTASSIUM 4.1 mmol/L (3.5-5.1)
[2023-01-17] MEDS ORDERED: PHENAZOPYRIDINE HCL 100 MG TABLET (FP) ONE (21:31)
[2023-01-17] MEDS ORDERED: CEPHALEXIN MONOHYDRATE 500 MG CAPSULE (UD) ONE (21:31)
[2023-01-17 21:32] LABS: CALCIUM 9.5 mg/dL (8.5-10.1)
[2023-01-17 21:34] LABS: ALBUMIN 3.6 g/dl (3.4-5.0); BLOOD UREA NITROGEN 16.2 mg/dL (7-18)
[2023-01-17 21:36] LABS: CREATININE 0.9 mg/dL (0.55-1.3)
[2023-01-17 21:37] LABS: TOT PROT 7.1 g/dl (6.4-8.2)
[2023-01-17 21:38] LABS: BILIRUBIN,TOTAL 0.4 mg/dL (0.2-1)
== END 2023-01-17 21:56 | disposition home or self-care (01) ==
LOC: JER 18:45
PROC: 3E0233Z Introduction of Anti-inflammatory into Muscle, Percutaneous Approach (ICD-10-PCS; principal; 2023-01-17)
DX: R31.9 Hematuria, unspecified (principal); R10.2 Pelvic and perineal pain; R39.15 Urgency of urination; N39.0 Urinary tract infection, site not specified
CPT/HCPCS: 36415; 76775-TC; 80053; 81003; 84703; 85025; 87086; 87186; 99284-25

== ENCOUNTER 2023-09-26 23:15 | Emergency (ER) | payer OTHER ==
[2023-09-26 23:25] VITALS: BP 108/73; PULSE 81; RESP 16; BMI 28.4
[2023-09-26 23:33] VITALS: TEMP 99.5
[2023-09-27] MEDS ORDERED: METOCLOPRAMIDE HCL INJECTION 10 MG/2 ML VIAL IVPB ONE (00:23)
[2023-09-27] MEDS ORDERED: SODIUM CHLORIDE 0.9% 500 ML INFUS.BAG IV ONE (00:23)
[2023-09-27] MEDS ORDERED: ACETAMINOPHEN 1000 MG/100 ML BAG IVPB ONE (00:23)
[2023-09-27] MEDS ORDERED: MECLIZINE HCL 25 MG TABLET (FP) PO ONE (00:27)
[2023-09-27] MEDS ORDERED: MECLIZINE HCL 25 MG TABLET (FP) ONE (00:57)
[2023-09-27] MEDS ORDERED: ACETAMINOPHEN INJECTION 100 ML IVPB ONE (00:57)
[2023-09-27] MEDS ORDERED: METOCLOPRAMIDE HCL INJECTION 10 MG/2 ML VIAL ONE (00:57)
[2023-09-27 01:38] LABS: BASO % 1.1 % (0-2.0); EOS % 2.3 % (0-4.5); HEMATOCRIT 40.7 % (32.4-45.2); HEMOGLOBIN 13.3 GM/dL (10.7-15.3); LYMPH % 12.9 % (8-40); MCH 25.1 pg (25.7-33.7); MCHC 32.6 g/dl (32.0-36.0); MEAN CELL VOLUME 77.1 fl (80-96); MEAN PLT VOLUME 8.5 fl (7.5-11.1); MONO % 14.5 % (3.8-10.2); NEUT % 69.2 % (42.8-82.8); PLATELET COUNT 145 10^3/uL (134-434); RBC 5.28 M/mm3 (3.60-5.2); RDW 17.8 % (11.6-15.6); WHITE BLOOD COUNT 8.3 K/mm3 (4.0-10.0)
[2023-09-27 01:57] LABS: POTASSIUM 3.7 mmol/L (3.5-5.1)
[2023-09-27 01:58] LABS: CALCIUM 9.3 mg/dL (8.5-10.1)
[2023-09-27 01:59] LABS: ALBUMIN 3.6 g/dl (3.4-5.0); BLOOD UREA NITROGEN 13.1 mg/dL (7-18)
[2023-09-27 02:02] LABS: CREATININE 0.8 mg/dL (0.55-1.3)
[2023-09-27 02:04] LABS: BILIRUBIN,TOTAL 0.3 mg/dL (0.2-1); TOT PROT 6.7 g/dl (6.4-8.2)
== END 2023-09-27 02:59 | disposition home or self-care (01) ==
LOC: JER 23:15
PROC: 3E033NZ Introduction of Analgesics, Hypnotics, Sedatives into Peripheral Vein, Percutaneous Approach (ICD-10-PCS; principal; 2023-09-27)
PROC: 3E033GC Introduction of Other Therapeutic Substance into Peripheral Vein, Percutaneous Approach (ICD-10-PCS; 2023-09-27)
DX: R05.9 Cough, unspecified (principal); R09.81 Nasal congestion; R51.9 Headache, unspecified; R53.1 Weakness; R19.7 Diarrhea, unspecified; R11.0 Nausea; M79.10 Myalgia, unspecified site; U07.1 COVID-19
CPT/HCPCS: 0241U-QW; 36415; 71046-TC-FY; 80053; 84484; 85025; 93005; 93010; 96374; 96375; 99285-25; J0131